=== PATIENT | male | born 1970 | race African-American/Black ===

== ENCOUNTER 2019-09-07 20:27 | Emergency (ER) | payer SELFPAY ==
[~2019-09-07] VITALS: Ht 170.2 cm; Wt 81.6 kg
[2019-09-07 20:43] VITALS: BP_SYST 157
--- NOTE | 2019-09-07 21:13 | NUR ---
Patient to ER bed 01 to gown for evaluation. Side rails up.
--- NOTE | 2019-09-07 21:30 | NUR ---
Pt brought in by self. Pt awake, alert, oriented x4. Pt states that he was climbing a approx 10 foot tree to try and declan something off of a nearby parking cover, when he slipped and fell from tree. Pt states he impacted his R shoulder/trapezius area and neck on the way down. Pt denies KO, denies any other medical complaint at this time. pt states pain 8/10 at this time. Pt denies chest pain, nausea, vomiting, shortness of breath, any other medical complaint a tthis time. Skin intact, no lacerations. VSS
--- NOTE | 2019-09-07 21:34 | NUR ---
Dr Castellanos at bedside examining patient
[2019-09-07] MEDS ORDERED: IBUPROFEN 800 MG TABLET PO ONE (21:45)
[2019-09-07 22:30] VITALS: BP_SYST 157
--- NOTE | 2019-09-07 22:30 | NUR ---
Patient given written and verbal discharge instructions and verbalizes understanding. ER MD discussed with patient the results and treatment provided. Patient in stable condition. ID arm band removed. NO IV Rx of Motrin given. Patient educated on pain management and to follow up with PMD. Pain Scale 2/10. Opportunity for questions provided and answered. Medication side effect fact sheet provided.
== END 2019-09-07 22:30 | disposition home or self-care (01) ==
LOC: SED 20:47
DX: S09.90XA Unspecified injury of head, initial encounter (principal); S16.1XXA Strain of muscle, fascia and tendon at neck level, initial encounter; W01.0XXA Fall on same level from slipping, tripping and stumbling without subsequent striking against object, initial encounter; Y93.89 Activity, other specified; Y92.89 Other specified places as the place of occurrence of the external cause; Y99.8 Other external cause status
CPT/HCPCS: 70450-TC; 72125-TC; 99284